=== PATIENT | female | born 1970 | race Caucasian/White ===

== ENCOUNTER → 2019-03-13 | Outpatient (REF) ==
--- NOTE | 2019-03-13 16:08 | REP ---
Partial lumbar spine series: Three views: History: Degenerative disc disease. No comparison lumbar spine imaging. Findings: There are clips in the right upper quadrant consistent with a previous cholecystectomy. Vertebral body heights are preserved. Alignment is normal. There is however, a bilateral pars defect visible in the posterior elements of L5. No discernible spondylolisthesis is seen. There is discogenic spurring anteriorly at L5-S1. There is moderate disc space narrowing at L4-5 as well and there is discogenic spurring anteriorly at L3-4 and L2-3. Pedicles and posterior elements are otherwise intact. Psoas margins are symmetric. Sacrum SI joints are unremarkable. Impression: Bilateral L5 spondylolysis without spondylolisthesis. Degenerative disc changes at L5-S1, L4-5, L3-4, and L2-3. Electronically Signed by Bry House MD 03/13/2019 04:57 P
--- NOTE | 2019-03-13 16:09 | REP ---
Cervical spine series: Three views. History: Degenerative disc disease. No comparison views. Findings: Lateral view shows straightening but otherwise normal alignment. Vertebral body heights are preserved. Disc spaces are maintained in the cervical spine. Prevertebral soft tissues are unremarkable. AP and open mouth odontoid views are unremarkable. The patient is edentulous. Impression: Straightening. Otherwise negative C-spine radiographs. Electronically Signed by Bry House MD 03/13/2019 04:57 P
== END ==
LOC: M SMT 13:04
PROVIDERS: ATTEND Internal Medicine
DX: M54.5 Low back pain (principal)